=== PATIENT | male | born 1940 | race Caucasian/White ===

== ENCOUNTER 2020-04-07 01:21 | Emergency (ER) | payer MEDICARE, OTHER ==
[~2020-04-07 01:21] MED LIST: ASPIRIN CHEWABL81 MG PO; CARDIZEM CD240 M1 PO; CENTRUM SILVER1 EAC5 PO; COLACE100 MG PO; CYMBALTA 30MG C30 MG PO; ELIQUIS5 MG PO; LISINOPRIL5 MG PO; LOVAZA1 GM PO; MECLIZINE 25MG25 MG PO; METFORMIN HCL500 MG PO; MOTRIN600 MG PO; NAMENDA5 MG PO; ONDANSETRON ODT4 MG PO; PROSCAR5 MG PO; VITAMIN B12 IJ; ZESTRIL5 MG PO
== END 2020-04-07 06:04 | disposition home or self-care (01) ==
LOC: FER 01:21
DX: M79.602 Pain in left arm (principal); M79.605 Pain in left leg; M54.2 Cervicalgia; F03.90 Unspecified dementia, unspecified severity, without behavioral disturbance, psychotic disturbance, mood disturbance, and anxiety; W01.0XXA Fall on same level from slipping, tripping and stumbling without subsequent striking against object, initial encounter; Y92.009 Unspecified place in unspecified non-institutional (private) residence as the place of occurrence of the external cause
CPT/HCPCS: 70450; 72125

== ENCOUNTER 2020-04-27 19:38 | Emergency (ER) | payer MEDICARE, OTHER ==
[2020-04-27 20:03] LABS: BASOPHIL 0.3 % (0-2); EOSINOPHIL 1.2 % (0-7); HCT 35.8 % (42.0-52.0); HGB 12.3 g/dl (13.2-18.0); LYMPHOCYTE 24.1 % (15-48); MCH 31.3 pg (25.0-31.0); MCHC 34.4 g/dL (32.0-36.0); MCV 91.1 fL (78.0-100.0); MONOCYTE 8.9 % (0-12); MPV 11.6 fL (6.0-9.5); NEUTROPHIL 65.1 % (41-80); NRBC 0; PLT 201 K/uL (150-400); RBC 3.93 M/uL (4.70-6.00); RDW 13.3 % (11.5-14.0); WBC 6.9 K/uL (4.0-10.5)
[2020-04-27 20:12] LABS: INR 1.43 (0.9-1.2); PROTHROMBIN TIME 16.6 SECONDS (11.4-13.6)
[2020-04-27 20:13] LABS: PTT 48.1 SECONDS (22.2-34.7)
[2020-04-27 20:19] LABS: ALBUMIN 3.4 g/dL (3.4-5.0); BILIRUBIN - TOTAL 0.9 mg/dL (0.2-1.0); BUN/CREAT RATIO (CALC) 22.8 RATIO; CREATININE 0.79 mg/dL (0.67-1.17); GLOBULIN (CALCULATION) 3.1 g/dL; POTASSIUM 4.7 mmol/L (3.5-5.1); TOTAL PROTEIN 6.5 g/dL (6.4-8.2)
[2020-04-27 21:06] LABS: BILIRUBIN 1+ mg/dL (NEGATIVE); BLOOD NEGATIVE Ery/uL (NEGATIVE); CLARITY CLEAR (CLEAR); COLOR YELLOW (YELLOW); GLUCOSE (U) NORMAL (NORMAL); LEUKOCYTES NEGATIVE Leu/uL (NEGATIVE); NITRITE NEGATIVE (NEGATIVE); PROTEIN NEGATIVE (NEGATIVE); SPECIFIC GRAVITY >=1.030 (1.001-1.030); UROBILINOGEN 0.2 mg/dL (0.2-1.0); pH 5.5 (5.0-9.0)
== END 2020-04-28 00:51 | disposition home or self-care (01) ==
LOC: FER 19:38
PROVIDERS: Emergency Medicine
DX: S70.01XA Contusion of right hip, initial encounter (principal); F03.90 Unspecified dementia, unspecified severity, without behavioral disturbance, psychotic disturbance, mood disturbance, and anxiety; Z91.02 Food additives allergy status; W19.XXXA Unspecified fall, initial encounter; Y92.129 Unspecified place in nursing home as the place of occurrence of the external cause; Z20.822 Contact with and (suspected) exposure to COVID-19
CPT/HCPCS: 36415; 70450; 71045; 73502; 80053; 81003; 85025; 85610; 85730; 86850; 86900; 86901; 93005; 96372; J3486; U0002

== ENCOUNTER 2020-05-03 20:03 | Day surgery (SDCO) | payer MEDICARE, OTHER ==
[~2020-05-03] VITALS: Ht 182.9 cm; Wt 78.0 kg
[2020-05-03 20:47] LABS: BASOPHIL 0.2 % (0-2); EOSINOPHIL 0.5 % (0-7); HGB 11.3 g/dl (13.2-18.0); LYMPHOCYTE 14.8 % (15-48); MCH 31.5 pg (25.0-31.0); MCHC 35.3 g/dL (32.0-36.0); MCV 89.1 fL (78.0-100.0); MONOCYTE 8.1 % (0-12); NRBC 0; PLT 221 K/uL (150-400); RBC 3.59 M/uL (4.70-6.00); RDW 13.4 % (11.5-14.0); WBC 8.1 K/uL (4.0-10.5)
[2020-05-03 21:03] LABS: BILIRUBIN 1+ mg/dL (NEGATIVE); BLOOD NEGATIVE Ery/uL (NEGATIVE); CLARITY CLEAR (CLEAR); GLUCOSE (U) NORMAL (NORMAL); LEUKOCYTES NEGATIVE Leu/uL (NEGATIVE); NITRITE NEGATIVE (NEGATIVE); PROTEIN NEGATIVE (NEGATIVE); SPECIFIC GRAVITY >=1.030 (1.001-1.030); UROBILINOGEN 0.2 mg/dL (0.2-1.0); pH 5.5 (5.0-9.0)
[2020-05-03 21:05] LABS: ALBUMIN 3.2 g/dL (3.4-5.0); BILIRUBIN - TOTAL 1.5 mg/dL (0.2-1.0); BUN/CREAT RATIO (CALC) 20.7 RATIO; CREATININE 0.92 mg/dL (0.67-1.17); GLOBULIN (CALCULATION) 2.8 g/dL; MAGNESIUM 1.2 mg/dL (1.8-2.4)
[2020-05-03 21:06] LABS: COLOR AMBER (YELLOW)
[2020-05-03 21:09] LABS: POTASSIUM 3.1 mmol/L (3.5-5.1)
--- NOTE | 2020-05-04 02:10 | NUR ---
0125: PT RECEIVED ADMIT FROM ED. VSS. PT HAS DEMENTIA. BED ALARM TURNED ON.
[2020-05-04] MEDS ORDERED: ASPIRIN81 MG PO (02:26)
[2020-05-04] MEDS ORDERED: ELIQUIS5 MG PO ×2 (02:28→02:29)
[2020-05-04] MEDS ORDERED: CENTRUM SILVER1 EAC1 PO (02:28)
[2020-05-04] MEDS ORDERED: PROSCAR5 MG PO (02:30)
[2020-05-04] MEDS ORDERED: LOVAZA1 GM PO (02:30)
[2020-05-04] MEDS ORDERED: FLOVENT HF120 PUFFS/ INH (02:33)
[2020-05-04] MEDS ORDERED: ZESTRIL5 MG PO (02:34)
[2020-05-04] MEDS ORDERED: NAMENDA 10MG TA10 MG PO (02:35)
[2020-05-04] MEDS ORDERED: METFORMIN HCL500 MG PO (02:36)
[2020-05-04] MEDS ORDERED: INDERAL LA120 MG PO (02:37)
[2020-05-04] MEDS ORDERED: SEROQUEL 25MG T25 MG PO ×2 (02:38→02:44)
[2020-05-04] MEDS ORDERED: FLOMAX 0.4 MG0.4 MG PO (02:40)
[2020-05-04] MEDS ORDERED: BRIN10TA PO (02:41)
[2020-05-04] MEDS ORDERED: IBUPROFEN200 M1 PO (02:45)
[2020-05-04 02:53] LABS: INR 1.53 (0.9-1.2); PROTHROMBIN TIME 17.5 SECONDS (11.4-13.6); PTT 46.9 SECONDS (22.2-34.7)
[2020-05-04 08:18] LABS: BASOPHIL 0.3 % (0-2); EOSINOPHIL 0.7 % (0-7); HCT 29.4 % (42.0-52.0); HGB 10.2 g/dl (13.2-18.0); LYMPHOCYTE 17.2 % (15-48); MCH 31.4 pg (25.0-31.0); MCHC 34.7 g/dL (32.0-36.0); MCV 90.5 fL (78.0-100.0); MONOCYTE 10.4 % (0-12); MPV 11.7 fL (6.0-9.5); NEUTROPHIL 71.1 % (41-80); NRBC 0; PLT 158 K/uL (150-400); RBC 3.25 M/uL (4.70-6.00); RDW 13.8 % (11.5-14.0)
[2020-05-04 08:41] LABS: BUN/CREAT RATIO (CALC) 22.5 RATIO; CREATININE 0.8 mg/dL (0.67-1.17); MAGNESIUM 1.4 mg/dL (1.8-2.4); POTASSIUM 3.3 mmol/L (3.5-5.1)
--- NOTE | 2020-05-04 14:35 | NUR ---
PT LIVES AT [facility]; PT WORKED WITH PT AND DID NOT FEEL HE WOULD PROGESS WITH THERAPY DUE TO COGNITION;PLEASE ADVISE OF ANY DISCHARGE NEEDS
[2020-05-04 15:31] LABS: BILIRUBIN NEGATIVE (NEGATIVE); BLOOD 2+ Ery/uL (NEGATIVE); CLARITY CLEAR (CLEAR); COLOR YELLOW (YELLOW); GLUCOSE (U) NORMAL (NORMAL); LEUKOCYTES NEGATIVE Leu/uL (NEGATIVE); NITRITE NEGATIVE (NEGATIVE); PROTEIN NEGATIVE (NEGATIVE); SPECIFIC GRAVITY >=1.030 (1.001-1.030); UROBILINOGEN 0.2 mg/dL (0.2-1.0); pH 5.5 (5.0-9.0)
[2020-05-04 15:37] LABS: BACTERIA TRACE; SQUAMOUS EPITHELIAL CELLS RARE; URINARY RBC 20-50
[2020-05-05 06:27] LABS: BASOPHIL 0.3 % (0-2); EOSINOPHIL 1.2 % (0-7); HCT 30.2 % (42.0-52.0); HGB 10.4 g/dl (13.2-18.0); LYMPHOCYTE 12.5 % (15-48); MCH 31.4 pg (25.0-31.0); MCHC 34.4 g/dL (32.0-36.0); MCV 91.2 fL (78.0-100.0); MONOCYTE 9.6 % (0-12); MPV 11.9 fL (6.0-9.5); NRBC 0; PLT 182 K/uL (150-400); RBC 3.31 M/uL (4.70-6.00); WBC 9.6 K/uL (4.0-10.5)
[2020-05-05 06:50] LABS: BUN/CREAT RATIO (CALC) 21.5 RATIO; CREATININE 0.79 mg/dL (0.67-1.17)
== END 2020-05-05 15:19 ==
LOC: FER 20:03 → FMS 05-04 00:32
PROVIDERS: Emergency Medicine; Internal Medicine; Nurse Practitioner; ADMIT Internal Medicine
DX: R53.1 Weakness (principal); F03.90 Unspecified dementia, unspecified severity, without behavioral disturbance, psychotic disturbance, mood disturbance, and anxiety; I48.0 Paroxysmal atrial fibrillation; E11.9 Type 2 diabetes mellitus without complications; E87.6 Hypokalemia; E83.42 Hypomagnesemia; M25.552 Pain in left hip; I10 Essential (primary) hypertension; E78.5 Hyperlipidemia, unspecified; M25.521 Pain in right elbow; Z20.822 Contact with and (suspected) exposure to COVID-19; Z87.891 Personal history of nicotine dependence; Z79.01 Long term (current) use of anticoagulants; Z79.82 Long term (current) use of aspirin; Z79.84 Long term (current) use of oral hypoglycemic drugs; Z79.899 Other long term (current) drug therapy; Z91.018 Allergy to other foods; W19.XXXA Unspecified fall, initial encounter; Y92.091 Bathroom in other non-institutional residence as the place of occurrence of the external cause
CPT/HCPCS: 36415; 70450; 72125; 73070; 73502; 80048; 80053; 81001; 81003; 83735; 84484; 85025; 85610; 85730; 90471; 90714; 93005; 97163; 97167; 97530-GP; 97535; G0378; J2060; J3475; J3480; J3486; J7030; J7040; U0002